=== PATIENT | male | born 1935 | race Caucasian/White ===

== ENCOUNTER → 2016-09-20 | Outpatient (CLI) | payer OTHER, BC ==
[~2016-09-20] MED LIST: ACETAMINOPHEN325 M1 PO; ACETAMINOPHEN650 M5 PO; ADULT LOW DOSE81 MG PO; ASPIRIN EC81 M1 PO; AUGMENTIN 875875 M1 PO; AUGMENTIN 875875 MG PO; CARDURA2 MG PO; CELEXA 10 MG TA10 M1 PO; CELEXA 20 MG TA20 M1 PO; COLACE100 MG PO; COUMADIN 5 MG TA5 M1 PO; COUMADIN7.5 MG PO; DEMADEX20 MG PO; DUONEB 2.5-0.5 M3 ML INH; FINASTERIDE5 MG PO; FISH OIL 1,0001 EAC5 PO; FLORASTOR250 MG PO; HYDROCODONE-AP1 EAC6 PO; IBUPROFEN 800800 M1 PO; K-DUR 20 MEQ T20 MEQ PO; LASIX 40 MG TAB40 M2 PO; LASIX 40 MG TAB40 MG PO; LASIX 80 MG TAB80 M1 PO; LASIX 80 MG TAB80 MG PO; LIDODERM 5%1 PATCH TOP; LISINOPRIL10 MG PO; LOPRESSOR25 PO; LOVASTAT10 PO; MEVACOR10 MG PO; MIRALAX255 GM PO; MYLANTA 12 OZ355 M1 PO; NIFEREX CAPSULE60 MG PO; NORCO 5-325 TA1 EACH PO; NOVOLOG100 UNIT/1; OMEGA 3-6-9 CO1 EACH PO; PACERONE 200 M200 M1 PO; POTASSIUM20 PO; PREDNISONE 20 M20 MG PO; SENNA PO; SENNA S TABLET1 EACH PO; SSD CREAM 1% 5050 GM TOP; THERA-M CAPLET1 EACH PO; TOPROL XL50 MG PO; TORSEMIDE20 MG PO; TRAMADOL 50 MG50 MG PO; ULTRAM 50MG TAB50 MG PO; VASOTEC5 MG PO; VITAMIN E1000 UNI3 PO; [UNRECOGNIZED DRUG - OTHER] PO
== END ==
LOC: HYPER 09-08 07:06
DX: L97.821 Non-pressure chronic ulcer of other part of left lower leg limited to breakdown of skin (principal); S81.801D Unspecified open wound, right lower leg, subsequent encounter; I10 Essential (primary) hypertension; I25.10 Atherosclerotic heart disease of native coronary artery without angina pectoris; I89.0 Lymphedema, not elsewhere classified; Z87.891 Personal history of nicotine dependence; Z72.89 Other problems related to lifestyle; X58.XXXD Exposure to other specified factors, subsequent encounter

== ENCOUNTER → 2016-11-01 | Outpatient (CLI) | payer OTHER, BC | LOC: HYPER 10-19 07:03 | DX: E11.622 Type 2 diabetes mellitus with other skin ulcer (principal); L97.821 Non-pressure chronic ulcer of other part of left lower leg limited to breakdown of skin; R60.9 Edema, unspecified; I10 Essential (primary) hypertension; I25.10 Atherosclerotic heart disease of native coronary artery without angina pectoris; L03.116 Cellulitis of left lower limb; I89.0 Lymphedema, not elsewhere classified; J44.9 Chronic obstructive pulmonary disease, unspecified; E78.00 Pure hypercholesterolemia, unspecified; Z87.891 Personal history of nicotine dependence; Z72.89 Other problems related to lifestyle ==

== ENCOUNTER → 2016-12-20 | Outpatient (CLI) | payer OTHER, BC | LOC: HYPER 11-29 07:50 | DX: E11.622 Type 2 diabetes mellitus with other skin ulcer (principal); L97.821 Non-pressure chronic ulcer of other part of left lower leg limited to breakdown of skin; I25.10 Atherosclerotic heart disease of native coronary artery without angina pectoris; I89.0 Lymphedema, not elsewhere classified; J44.9 Chronic obstructive pulmonary disease, unspecified; E78.00 Pure hypercholesterolemia, unspecified; I11.0 Hypertensive heart disease with heart failure; I50.9 Heart failure, unspecified; Z87.891 Personal history of nicotine dependence; Z72.89 Other problems related to lifestyle ==

== ENCOUNTER 2017-02-14 14:43 | Inpatient (IN) | payer OTHER, BC ==
[~2017-02-14] VITALS: Ht 175.3 cm; Wt 139.7 kg
--- NOTE | ~2017-02-14 | EKG ---
[address] [address] ELECTROCARDIOGRAM REPORT Name: MARV CLEANING [id number] Admission: 02/14/17 Attend Phys: Discharge: Date of : 35 Report #: [id number] THIS REPORT FOR: //name// [facility] ED Test Date: 2017-02-14 Test Time: 15:58:33 Pat Name: MARV CLEANING Department: Room: Gender: Director Translation: PHU : 1935 Requested By: Mercy Handy Order Number: [id number] MD: Cecil Edward Measurements Intervals [place] Rate: 92 P: [place]: QRS: 67 QRSD: 126 T: 255 QT: 323 QTc: 400 Interpretive Statements Atrial flutter Paired ventricular premature complexes Electronically Signed On 02-14-2017 17:11:02 MEDICAL OFFICE RECEPTIONIST by Cecil Edward [email or web address] <ELECTRONICALLY SIGNED> By: Cecil Edward MD 02/14/17 1711 1558 1558 Cecil Edward MD /EPI
--- NOTE | ~2017-02-14 | HC ---
[facility] [place] [address] CONSULTATION Name: MARV CLEANING Room #: 443-P [facility] IN M.R.#: [id number] Admission: 02/14/17 Attend Phys: Alfred Bright MD Discharge: 02/17/17 Date of : 35 Report #: [id number] THIS REPORT FOR: //name// CC: Alfred New DATE OF SERVICE: 02/15/2017 REFERRING PROVIDER: Dr. Bright. REASON FOR CONSULTATION: Shortness of breath and hypoxemia. CHIEF COMPLAINT: Cellulitis. HISTORY OF PRESENT ILLNESS: Our group was asked to see the patient in consultation today while hospitalized at [facility]. He is a pleasant 81-year-old male with a history of COPD, typically on supplemental oxygen at home at 2-3 liters as well as on nebulized treatment and chronic steroid therapy with prednisone. The patient unable to give much history. He is confused. He had just received 50 mg of Seroquel prior to my evaluation. is historian and is reasonably a good historian. The patient has been having some worsening lower extremity edema. Subsequently, developed cellulitis, was admitted to the hospital yesterday, placed on Lasix drip and piperacillin and tazobactam for further management. The patient has been diuresing. Echocardiogram was performed with some difficulty evaluating pulmonary artery structures. Right ventricle was somewhat dilated. The patient is anticoagulated on Eliquis chronically. Currently, he is having some cough with some loose coarse breath sounds. No fevers, chills or sweats. Chest x-ray yesterday revealed some cardiomegaly with diminished lung volumes and nothing for infiltrates or effusions. ALLERGIES: IV CONTRAST. PAST MEDICAL HISTORY: 1. History of atrial fibrillation/flutter. 2. History of prior aortic valve replacement in 2010. 3. Hypertension. 4. Hyperlipidemia. 5. Lower extremity cellulitis. 6. Chronic obstructive pulmonary disease. 7. Chronic systemic steroid use. OUTPATIENT MEDICATIONS: Include potassium chloride, MiraLax, prednisone, Senokot, silver sulfadiazine, metoprolol, Celexa, fish oil, ibuprofen, finasteride, amiodarone, Lasix, lovastatin, lisinopril. [address] [address] CONSULTATION Name: MARV CLEANING Room #: 443-P [facility] IN [facility].#: [id number] Admission: 02/14/17 Attend Phys: Alfred Bright MD Discharge: 02/17/17 Date of : 35 Report #: [id number] SOCIAL HISTORY: The patient is an ex-smoker. No significant alcohol consumption. Lives with his . Currently, he is retired. FAMILY HISTORY: Negative for any significant pulmonary disease. REVIEW OF SYSTEMS: Difficult to obtain as the patient is confused. CONSTITUTIONAL: No fever or chills. Some ongoing weight loss and worsening edema. ENT: No upper respiratory congestion, rhinorrhea, dysphagia reported. CARDIOVASCULAR: Known history of cardiac disease and atrial fibrillation. GASTROINTESTINAL: No nausea, vomiting, diarrhea, constipation or abdominal pain. GENITOURINARY: No dysuria, no frequency or hematuria. INTEGUMENT: Denies any chronic rashes. Has some worsening lower extremity edema and erythema reported. MUSCULOSKELETAL: Worsening lower extremity edema. PHYSICAL EXAMINATION: VITAL SIGNS: Afebrile, pulse 80s, respiratory rate 20, blood pressure 121/60, oxygen saturation 96% on 3 liters. GENERAL: This is an obese, confused elderly male. ENT: Clear oropharynx, Mallampati 3 airway. NECK: Thick, supple, no lymphadenopathy. LUNGS: Diffuse expiratory wheezes noted throughout. Respirations mildly labored with some expiratory rhonchi also noted. CARDIOVASCULAR: Heart regular. No murmurs noted. ABDOMEN: Obese, soft, nontender, no masses. EXTREMITIES: With 3+ lower extremity edema, erythema. Right lower extremity in Noe wrap, left lower extremity in Kerlix bandage. LABORATORY DATA: White blood cell count 15,000, hemoglobin 10, hematocrit 34, platelet count 225. Sodium 143, potassium 3.1, chloride 99, bicarbonate 37, BUN 16, creatinine 1.0, glucose 105. ProBNP is 914. Arterial blood gas on room air revealed pH 7.45, pCO2 of 55, pO2 of 54, bicarbonate 37. Chest x-ray today is pending. IMPRESSION: 1. Underlying chronic obstructive pulmonary disease with acute exacerbation. Suggest stopping bronchodilators. Currently, he is on no nebulized treatments. Would also ____ steroids changed to IV. Continue with Zosyn and followup chest radiograph. 2. Lower extremity cellulitis. 3. Edema. 4. Probable sleep apnea. 5. Probable pulmonary hypertension, but difficult to interpret echo as poor [facility] [address] [place] [address] CONSULTATION Name: MARV CLEANING Room #: 443-P [facility] IN M.R.#: [id number] Admission: 02/14/17 Attend Phys: Alfred Bright MD Discharge: 02/17/17 Date of : 35 Report #: [id number] quality evaluation of the pulmonary arteries. 6. Atrial fibrillation. 7. History of aortic valve replacement. ____ confusion, which may be medication related and acute illness. SUGGESTIONS: As outlined above. Await cultures. Discussed at length with . Continuous pulse ox. Followup arterial blood gas in a.m. May require noninvasive positive pressure ventilation to assist with management. We will reassess after aerosol treatments and systemic steroids. Thank you for requesting our suggestions. <ELECTRONICALLY SIGNED> By: Jay Park MD 02/18/17 1317 1311 193 Jay Park MD /nt
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
--- NOTE | ~2017-02-14 | HC ---
[facility] [place] [address] CONSULTATION Name: MARV CLEANING Room #: 443-P [facility] IN M.R.#: [id number] Admission: 02/14/17 Attend Phys: Alfred Bright MD Discharge: 02/17/17 Date of : 35 Report #: [id number] THIS REPORT FOR: //name// CC: Alfred New REASON FOR CONSULTATION: Edema. HISTORY OF PRESENT ILLNESS: The patient is an 81-year-old gentleman with a history of remote bioprosthetic aortic valve replacement in 2010 with a #23 Bovine Roosevelt valve. He has a history of severe COPD and cor pulmonale, dyslipidemia and hypertension. He now presents with weeping lower extremity wounds and significant lower extremity edema. He denies orthopnea or paroxysmal nocturnal dyspnea. Following his aortic valve placement, he has a history of normalization of left ventricular systolic function by echocardiography. He denies chest heaviness or pressure. He denies fevers, chills, or night sweats. He is somewhat confused and not clear that he has been taking his medicines regularly. He has been told of needing continuous oxygen therapy at home and I am not sure that he has been using this. MEDICATIONS: His reported medicines include potassium 40 mEq 3 times a day, prednisone, metoprolol 50 mg daily, Celexa 20 mg daily, finasteride 5 mg daily, amiodarone 100 mg daily, furosemide 80 mg twice daily, lisinopril 10 mg daily, and lovastatin 5 mg daily. PAST MEDICAL HISTORY: Medical records have been reviewed and include a history of thalassemia minor, severe COPD, oxygen requiring; aortic valve replacement in 2010, paroxysmal atrial flutter, dyslipidemia, hypertension, and remote tonsillectomy. SOCIAL HISTORY: He is a significant prior smoker. FAMILY HISTORY: Unremarkable for premature coronary artery disease. REVIEW OF SYSTEMS: All systems negative except as that noted above. PHYSICAL EXAMINATION: GENERAL: This is an elderly gentleman who is completely naked, lying in bed, he is alert, he recognizes me, although he is confused to where he is. VITAL SIGNS: Blood pressure is 160/61, heart rate of 80 and irregular, he is afebrile, weight is 308 pounds. HEENT: There are neither xanthelasma, subcutaneous xanthomata, oral mucosa or digital cyanosis or kyphoscoliosis present. CHEST: Clear to auscultation and percussion. CARDIAC: An irregularly irregular rhythm with normal S1, S2. ABDOMEN: Soft, obese and nontender. EXTREMITIES: Reveal 3-4+ pitting edema. Radial pulses are 2+. [address] [address] CONSULTATION Name: MARV CLEANING Room #: 443-[facility] IN M.R.#: [id number] Admission: 02/14/17 Attend Phys: Alfred Bright MD Discharge: 02/17/17 Date of : 35 Report #: [id number] NEUROLOGIC: He is alert and confused. LABORATORY DATA: EKG, atrial flutter with occasional premature ventricular complexes, nonspecific ST and T-wave abnormality. Sodium 141, potassium 3.1, creatinine 1.0. Troponin is negative. ProBNP of 914, normal in this age group. White count 15.4, hemoglobin 10, hematocrit 34, and platelet count 225. Chest x-ray demonstrates cardiomegaly. IMPRESSION: 1. Cor pulmonale and right heart failure. 2. Acute on chronic diastolic heart failure. 3. Severe chronic obstructive pulmonary disease, steroid and oxygen dependent. 4. Remote Roosevelt bioprosthetic aortic valve replacement. 5. Atrial flutter of uncertain chronicity. 6. Diabetes. RECOMMENDATIONS: 1. Continued rate control of atrial flutter. 2. Pulmonary evaluation for predominantly right-sided heart failure. 3. Continue dietary salt restriction; continued IV Lasix. Thank you for asking me to participate in the patient's care. <ELECTRONICALLY SIGNED> By: Jerry Garcia MD, FACC 02/20/17 1435 0805 0924 Jerry Garcia MD, FACC /nt
--- NOTE | ~2017-02-14 | 2DMMODE ---
[place] [address] [facility] [employer] [place] [address] 2 D/M-MODE ECHOCARDIOGRAM Name: MARV CLEANING Room #: 443-P [facility] IN M.R.#: [id number] Admission: 02/14/17 Attend Phys: Alfred Bright MD Discharge: Date of : 35 Date of Service: 02/15/17 1048 Report #: [id number] THIS REPORT FOR: //name// APPROVED REPORT Study performed: 02/15/2017 09:47:54 EXAM: Comprehensive 2D, Doppler, and color-flow Echocardiogram Patient Location: Bedside Room #: 443 Status: routine BSA: 2.48 HR: 84 bpm BP: 121/61 mmHg Rhythm: Atrial Flutter Other Information Study Quality: Fair Technically limited study due to body habitus, lung disease, inability to position patient. Indications COPD Hypertension/HDD Atrial flutter 2D Dimensions LVOT Diam: 21.75 (18-24mm) Aortic Valve AoV Peak Arjun.: 3.08 m/s AO Peak Gr.: 38.02 mmHg LVOT Max P.09 mmHg AO Mean Gr.: 19.32 mmHg LVOT Mean P.57 mmHg AO V2 Mean: 1.98 m/s LVOT Max V: 0.88 m/s AO V2 VTI: 66.62 cm LVOT Mean V: 0.57 m/s DONNELL (VTI): 0.93 cm2 LVOT V1 VTI: 16.66 cm DONNELL Vmax: 1.06 cm2 SV (LVOT): 61.87 mL Left Ventricle The left ventricle is normal size. There is normal LV segmental wall motion. The left ventricular systolic function is normal. LVEF is 55-60%. [facility] [address] [place] [address] 2 D/M-MODE ECHOCARDIOGRAM Name: MARV CLEANING Room #: 443-P [facility] IN .R.#: [id number] Admission: 02/14/17 Attend Phys: Alfred Bright MD Discharge: Date of : 35 Date of Service: 02/15/17 1048 Report #: [id number] Right Ventricle Right ventricle is dilated. Aortic Valve Bioprosthetic aortic valve is present. AVR #23 Roosevelt bovine. Peak gradient 27mm, mean 14mm No aortic regurgitation is present. Mitral Valve Moderate mitral annular calcification There is no mitral valve regurgitation noted. Tricuspid Valve Tricuspid valve is grossly normal in structure and function. Great Vessels The aortic root is normal in size. Pericardium There is no pericardial effusion. <Conclusion> Very limited study, even with Definity The left ventricular systolic function is normal. There is normal LV segmental wall motion. LVEF 55-60%. Right ventricle is dilated. Bioprosthetic aortic valve is present, functioning normally. AVR #23 Roosevelt bovine. Peak gradient 27mm, mean 14mm. No aortic regurgitation is present. Moderate mitral annular calcification. There is no mitral valve regurgitation noted. Pulmonary artery pressure could not be reliably ascertained There is no pericardial effusion. <ELECTRONICALLY SIGNED> By: Jerry Garcia MD, FACC 02/15/17 1048 1048 1048 Jerry Garcia MD, FACC /INF
[2017-02-14 14:48] VITALS: BP 153/114
[2017-02-14 16:19] LABS: HEMATOCRIT 35.6 % (42.0-52.0); HEMOGLOBIN 10.8 gm/dL (14.0-18.0); MCH 19.3 pg (26.0-34.0); MCHC 30.4 g/dL (28.0-37.0); MCV 63.6 fL (80.0-100.0); PLATELET COUNT 222 thou/uL (150-400); RDW 16.9 % (10.5-14.5); WBC 12.2 thou/uL (4.0-11.0)
[2017-02-14 16:24] LABS: MANUAL DIFF YES
[2017-02-14 16:25] LABS: ANION GAP 3 mmol/L (7-16); BUN 16 mg/dL (7-18); CALCIUM 9.2 mg/dL (8.5-10.1); CHLORIDE 100 mmol/L (98-107); CO2 34 mmol/L (21-32); CREATININE 0.9 mg/dL (0.7-1.3); GLUCOSE 139 mg/dL (74-106); POTASSIUM 4.3 mmol/L (3.5-5.1); SODIUM 137 mmol/L (136-145)
[2017-02-14 16:34] LABS: ALBUMIN 3.2 g/dL (3.4-5.0); ALKALINE PHOSPHATASE 58 U/L (46-116); SGOT 36 U/L (15-37); SGPT 27 U/L (30-65); TOTAL BILIRUBIN 0.5 mg/dL (<0.1-1.0); TOTAL PROTEIN 6.8 g/dL (6.4-8.2); TROPONIN-I < 0.04 ng/mL (<0.06)
[2017-02-14 16:59] LABS: ABSOLUTE NEUTROPHILS 7.8 thou/uL (1.4-8.2); TOTAL CELL COUNT 100
[2017-02-14 17:00] LABS: ANISOCYTOSIS 2+; MICROCYTES 2+
[2017-02-14 17:01] LABS: HYPOCHROMASIA 1+; OVALOCYTES FEW; POLYCHROMASIA OCCASIONAL
[2017-02-14 17:02] LABS: POIKILOCYTOSIS 1+
[2017-02-14 17:27] VITALS: BP 153/114
[2017-02-14 19:12] VITALS: BP 169/81
[2017-02-14 20:00] VITALS: BP 143/74
[2017-02-15 04:00] VITALS: BP 169/61
[2017-02-15 05:45] LABS: BASOPHILS 0.4 % (0.0-2.0); HEMATOCRIT 34.3 % (42.0-52.0); HEMOGLOBIN 10.5 gm/dL (14.0-18.0); LYMPHOCYTES 24.6 % (24.0-44.0); MCH 19.2 pg (26.0-34.0); MCHC 30.7 g/dL (28.0-37.0); MCV 62.6 fL (80.0-100.0); MONOCYTES 9.3 % (1.0-8.0); PLATELET COUNT 225 thou/uL (150-400); POLYS 64.7 % (36.0-66.0); RBC 5.48 mil/uL (4.50-6.00); RDW 16.7 % (10.5-14.5); WBC 15.4 thou/uL (4.0-11.0)
[2017-02-15 05:57] LABS: MANUAL DIFF NO
[2017-02-15 05:59] LABS: CALCIUM 8.6 mg/dL (8.5-10.1); MAGNESIUM 1.9 mg/dL (1.8-2.4)
[2017-02-15 06:00] LABS: POTASSIUM 3.1 mmol/L (3.5-5.1)
[2017-02-15 08:00] VITALS: BP 121/61
[2017-02-15 08:05] LABS: ANISOCYTOSIS 1+; HYPOCHROMASIA 2+; MICROCYTES 2+; OVALOCYTES FEW; POIKILOCYTOSIS SLIGHT
[2017-02-15 08:06] LABS: POLYCHROMASIA SLIGHT
[2017-02-15 08:30] LABS: ABG SAMPLE TYPE ARTERIAL; BE(vivo) 11.5 mmol/L (-2 to +3); HCO3 37.4 mmol/L (22.0-26.0); O2(CT) 15.2 mL/dL (15.0-23.0); PCO2 55.1 mmHg (35.0-45.0); sO2 88.8 % (92.0-98.0); tCO2 39.1 mmol/L (24.0-30.0)
[2017-02-15 08:31] LABS: FIO2 21 %; STICK SITE R.RADIAL
[2017-02-15 15:15] VITALS: BP 113/54
[2017-02-15 20:26] VITALS: BP 143/48
[2017-02-16 05:08] VITALS: BP 134/69
[2017-02-16 06:21] LABS: CALCIUM 8.8 mg/dL (8.5-10.1); CREATININE 1.1 mg/dL (0.7-1.3); POTASSIUM 3.7 mmol/L (3.5-5.1)
[2017-02-16 07:45] LABS: ABG SAMPLE TYPE ARTERIAL; BE(vivo) 7.7 mmol/L (-2 to +3); HCO3 33.5 mmol/L (22.0-26.0); LACTATE 1.12 mmol/L (0.5-2.0); O2(CT) 15.3 mL/dL (15.0-23.0); O2Hb 93.2 % (92.0-98.0); PCO2 52.7 mmHg (35.0-45.0); PO2 75.5 mmHg (80.0-100.0); STICK SITE R.RADIAL; pH 7.421 (7.360-7.450); sO2 95.2 % (92.0-98.0); tCO2 35.1 mmol/L (24.0-30.0)
[2017-02-16 08:10] VITALS: BP 130/60
[2017-02-16 15:55] VITALS: BP 128/60
[2017-02-16 17:15] LABS: TSH 0.93 uIU/mL (0.358-3.740)
[2017-02-16 20:19] VITALS: BP 110/58
[2017-02-17 03:53] VITALS: BP 142/71
[2017-02-17 06:46] LABS: CREATININE 1.1 mg/dL (0.7-1.3); POTASSIUM 3.2 mmol/L (3.5-5.1)
[2017-02-17 06:51] LABS: % SATURATION 14 % (20-39); IRON 38 ug/dL (65-175); TIBC 276 ug/dL (250-450); UIBC 238 ug/dL
[2017-02-17 07:07] LABS: FOLIC ACID 15.2 ng/mL (8.6-58.9)
[2017-02-17 08:00] VITALS: BP 139/63
[2017-02-17 14:57] VITALS: BP 139/63
[2017-02-17] MEDS ORDERED: ELIQUIS5 MG PO (15:37)
[2017-02-17] MEDS ORDERED: ALDACTONE25 MG PO (17:10)
[2017-02-17] MEDS ORDERED: PAXIL10 MG PO (17:10)
[2017-02-17] MEDS ORDERED: PREDNISONE 10 M10 MG PO (17:12)
== END 2017-02-17 17:00 | disposition home health service (06) | DRG 871 ==
LOC: ER 14:43 → 4S 17:08 → EROBS 17:08 → 4S 19:17
PROVIDERS: Hospitalist; Internal Medicine; Internal Medicine Pulmonary Disease; Nurse Practitioner; Physician Assistant; Registered Nurse
DX: A41.9 Sepsis, unspecified organism (principal); J96.21 Acute and chronic respiratory failure with hypoxia; J96.22 Acute and chronic respiratory failure with hypercapnia; I50.33 Acute on chronic diastolic (congestive) heart failure; I48.92 Unspecified atrial flutter; L03.116 Cellulitis of left lower limb; L03.115 Cellulitis of right lower limb; J44.1 Chronic obstructive pulmonary disease with (acute) exacerbation; L97.919 Non-pressure chronic ulcer of unspecified part of right lower leg with unspecified severity; L97.929 Non-pressure chronic ulcer of unspecified part of left lower leg with unspecified severity; D68.59 Other primary thrombophilia; I42.9 Cardiomyopathy, unspecified; I11.0 Hypertensive heart disease with heart failure; E78.5 Hyperlipidemia, unspecified; N40.0 Benign prostatic hyperplasia without lower urinary tract symptoms; I48.0 Paroxysmal atrial fibrillation; I27.81 Cor pulmonale (chronic); E11.9 Type 2 diabetes mellitus without complications; I25.10 Atherosclerotic heart disease of native coronary artery without angina pectoris; E11.621 Type 2 diabetes mellitus with foot ulcer; F41.9 Anxiety disorder, unspecified; G47.33 Obstructive sleep apnea (adult) (pediatric); R41.0 Disorientation, unspecified; F32.9 Major depressive disorder, single episode, unspecified; Z87.81 Personal history of (healed) traumatic fracture; Z87.891 Personal history of nicotine dependence; Z91.041 Radiographic dye allergy status; Z79.899 Other long term (current) drug therapy; Z90.49 Acquired absence of other specified parts of digestive tract; Z95.2 Presence of prosthetic heart valve; Z99.81 Dependence on supplemental oxygen; Z95.1 Presence of aortocoronary bypass graft
CPT/HCPCS: 10100

== ENCOUNTER → 2017-02-14 | Outpatient (CLI) | payer OTHER, BC | LOC: HYPER 01-05 07:25 | DX: E11.622 Type 2 diabetes mellitus with other skin ulcer (principal); L97.811 Non-pressure chronic ulcer of other part of right lower leg limited to breakdown of skin; L97.821 Non-pressure chronic ulcer of other part of left lower leg limited to breakdown of skin; R60.9 Edema, unspecified; I10 Essential (primary) hypertension; I25.10 Atherosclerotic heart disease of native coronary artery without angina pectoris; I89.0 Lymphedema, not elsewhere classified; I48.91 Unspecified atrial fibrillation; J44.9 Chronic obstructive pulmonary disease, unspecified; E78.00 Pure hypercholesterolemia, unspecified; I11.0 Hypertensive heart disease with heart failure; I50.9 Heart failure, unspecified; Z87.891 Personal history of nicotine dependence; Z72.89 Other problems related to lifestyle ==

== ENCOUNTER → 2017-05-09 | Outpatient (CLI) | payer OTHER, BC ==
[~2017-05-09] MED LIST changes: +ALDACTONE25 MG PO; +ELIQUIS5 MG PO; +PAXIL10 MG PO; +PREDNISONE 10 M10 MG PO
== END ==
LOC: HYPER 06:56
DX: I87.2 Venous insufficiency (chronic) (peripheral) (principal); E11.622 Type 2 diabetes mellitus with other skin ulcer; L97.221 Non-pressure chronic ulcer of left calf limited to breakdown of skin; L97.211 Non-pressure chronic ulcer of right calf limited to breakdown of skin; I48.92 Unspecified atrial flutter; J44.9 Chronic obstructive pulmonary disease, unspecified; I25.10 Atherosclerotic heart disease of native coronary artery without angina pectoris; E78.00 Pure hypercholesterolemia, unspecified; I11.0 Hypertensive heart disease with heart failure; I50.9 Heart failure, unspecified; I89.0 Lymphedema, not elsewhere classified; Z87.891 Personal history of nicotine dependence; Z72.89 Other problems related to lifestyle

== ENCOUNTER → 2017-09-01 | Outpatient (CLI) | payer OTHER, BC | LOC: HYPER 07:03 | DX: E11.622 Type 2 diabetes mellitus with other skin ulcer (principal); L97.811 Non-pressure chronic ulcer of other part of right lower leg limited to breakdown of skin; L97.821 Non-pressure chronic ulcer of other part of left lower leg limited to breakdown of skin; I89.0 Lymphedema, not elsewhere classified; I10 Essential (primary) hypertension; I48.92 Unspecified atrial flutter; J44.9 Chronic obstructive pulmonary disease, unspecified; I25.10 Atherosclerotic heart disease of native coronary artery without angina pectoris; E78.00 Pure hypercholesterolemia, unspecified; I11.0 Hypertensive heart disease with heart failure; I50.9 Heart failure, unspecified; Z87.891 Personal history of nicotine dependence ==

== ENCOUNTER → 2017-10-05 | Outpatient (CLI) | payer OTHER, BC | LOC: HYPER 09-29 07:12 | DX: E11.622 Type 2 diabetes mellitus with other skin ulcer (principal); L97.821 Non-pressure chronic ulcer of other part of left lower leg limited to breakdown of skin; L97.211 Non-pressure chronic ulcer of right calf limited to breakdown of skin; S90.821A Blister (nonthermal), right foot, initial encounter; I11.0 Hypertensive heart disease with heart failure; I50.9 Heart failure, unspecified; I89.0 Lymphedema, not elsewhere classified; I25.10 Atherosclerotic heart disease of native coronary artery without angina pectoris; E78.00 Pure hypercholesterolemia, unspecified; J44.9 Chronic obstructive pulmonary disease, unspecified; Z87.891 Personal history of nicotine dependence; X58.XXXA Exposure to other specified factors, initial encounter; Y93.89 Activity, other specified; Y92.89 Other specified places as the place of occurrence of the external cause; Y99.8 Other external cause status ==

== ENCOUNTER → 2018-01-03 | Outpatient (CLI) | payer OTHER, BC | LOC: HYPER 12-26 07:02 | DX: E11.622 Type 2 diabetes mellitus with other skin ulcer (principal); L97.811 Non-pressure chronic ulcer of other part of right lower leg limited to breakdown of skin; L97.821 Non-pressure chronic ulcer of other part of left lower leg limited to breakdown of skin; L84 Corns and callosities; E78.00 Pure hypercholesterolemia, unspecified; E66.9 Obesity, unspecified; I11.0 Hypertensive heart disease with heart failure; I50.9 Heart failure, unspecified; I89.0 Lymphedema, not elsewhere classified; I48.92 Unspecified atrial flutter; I25.10 Atherosclerotic heart disease of native coronary artery without angina pectoris; I87.2 Venous insufficiency (chronic) (peripheral); J44.9 Chronic obstructive pulmonary disease, unspecified; Z87.891 Personal history of nicotine dependence; Z95.4 Presence of other heart-valve replacement; Z68.41 Body mass index [BMI] 40.0-44.9, adult ==